=== PATIENT | male | born 1970 | race African-American/Black ===

== ENCOUNTER 2022-02-18 13:21 | Emergency (ER) | payer OTHER ==
[~2022-02-18] VITALS: Ht 193 cm; Wt 100.7 kg
[2022-02-18] MEDS ORDERED: ONDANSETRON HCL INJ 2MG/ML 2ML 2 MG/ML VIAL IV STA (13:35)
[2022-02-18] MEDS ORDERED: ONDANSETRON ODT4 MG PO ×2 (14:04→14:09)
== END 2022-02-18 14:12 | disposition home or self-care (01) ==
LOC: FSED 13:25
DX: R11.2 Nausea with vomiting, unspecified (principal); N28.9 Disorder of kidney and ureter, unspecified
CPT/HCPCS: 80053; 85025; 93005; 96374; 99283; J2405

== ENCOUNTER 2022-10-23 22:26 | Observation (INO) | payer SELFPAY ==
[~2022-10-23] VITALS: Ht 195.6 cm; Wt 100.7 kg
[~2022-10-23 22:26] MED LIST: ONDANSETRON ODT4 MG PO
[2022-10-24] MEDS ORDERED: Vancomycin IV 1 GM in SODIUM CHLORIDE 0.9% 250ML 250 ML IV ONE (00:15)
[2022-10-24] MEDS ORDERED: PIPERACILLIN/TAZOBACTAM 3.375 GM VIAL ONE (00:33)
[2022-10-24] MEDS ORDERED: Vancomycin IV 1 GM VIAL ONE (00:33)
[2022-10-24] MEDS ORDERED: SODIUM CHLORIDE 0.9% 250ML 250 ML ONE (00:39)
[2022-10-24] MEDS ORDERED: HYDROCODONE/APAP 7.5MG-325MG 1 EA TAB PO PRN (00:45)
[2022-10-24] MEDS ORDERED: ONDANSETRON HCL INJ 2MG/ML 2ML 2 MG/ML VIAL IV PRN (00:45)
[2022-10-24] MEDS ORDERED: ACETAMINOPHEN 325 MG TAB PO PRN (00:45)
[2022-10-24] MEDS ORDERED: SODIUM CHLORIDE 0.9% 1000ML 1,000 ML IV SCH (00:45)
[2022-10-24] MEDS: SODIUM CHLORIDE 0.9% 1000ML 1,000 ML IV SCH ×2 (00:50→03:11)
[2022-10-24 02:45] VITALS: BP 117/86; PULSE 85; RESP 20; TEMP 98.1; TEMP 98.5; O2SAT 100
[2022-10-24 07:28] VITALS: BP 111/63; PULSE 78; RESP 17; TEMP 97.4; O2SAT 100
[2022-10-24 07:33] VITALS: BP 111/63; PULSE 78; RESP 17; TEMP 97.4; O2SAT 100
[2022-10-24] MEDS ORDERED: FLUCONAZOLE 100 MG TAB PO SCH (09:00)
[2022-10-24 11:32] VITALS: BP 105/56; PULSE 77; RESP 18; TEMP 98.6; O2SAT 100
[2022-10-24] MEDS ORDERED: CEPHALEXIN500 MG PO (13:49)
[2022-10-24] MEDS ORDERED: lamisil PO (13:55)
== END 2022-10-24 14:39 | disposition home or self-care (01) ==
LOC: FSED 22:41 → ERHOLD 10-24 00:38 → MED/SURG3 10-24 02:00
PROVIDERS: ADMIT Family Medicine; ATTEND Family Medicine
DX: L03.115 Cellulitis of right lower limb (principal); N28.9 Disorder of kidney and ureter, unspecified; B35.3 Tinea pedis; F17.210 Nicotine dependence, cigarettes, uncomplicated; Z11.52 Encounter for screening for COVID-19; Z79.899 Other long term (current) drug therapy
CPT/HCPCS: 0223U; 36415; 99284; G0378; J2543; J7030; J7050